=== PATIENT | female | born 1945 | race Caucasian/White ===

== ENCOUNTER 2017-02-02 11:14 | Observation (INO) | payer BC, OTHER ==
[2017-01-27 14:00] LABS: BASOPHILS 0.3 %; BASOPHILS ABSOLUTE 0.02 10/3/uL (0.0-0.16); EOSINOPHILS 0.9 %; EOSINOPHILS ABSOLUTE 0.06 10/3/uL (0.0-0.53); HEMATOCRIT 37.6 % (36.0-48.0); HEMOGLOBIN 12.9 g/dL (12.0-16.0); IMMATURE GRANULOCYTES 0.1 %; IMMATURE GRANULOCYTES ABSOLUTE 0.01 10/3/uL (0.0-0.11); LYMPHOCYTES 33.2 %; LYMPHOCYTES ABSOLUTE 2.22 10/3/uL (0.67-4.30); MEAN CORPUS HGB CONC 34.3 g/dL (32.0-36.0); MEAN CORPUSCULAR HEMOGLOB 30.4 pg (26.0-34.0); MEAN CORPUSCULAR VOLUME 88.7 fL (80-100); MEAN PLATELET VOLUME 8.9 fL (9.2-13.0); MONOCYTES 9.1 %; MONOCYTES ABSOLUTE 0.61 10/3/uL (0.21-1.20); NEUTROPHILS 56.4 %; NEUTROPHILS ABSOLUTE 3.76 10/3/uL (2.02-8.40); PLATELET COUNT 293 10/3/uL (150-400); RED CELL COUNT 4.24 10/6/uL (4.0-5.6); WHITE BLOOD CELLS 6.7 10/3/uL (4.5-10.5)
[2017-01-27 14:02] LABS: MANUAL DIFF NO %
[2017-01-27 14:14] LABS: ASCORBIC ACID (UR NOT ORDER) NEG (NEG); BILIRUBIN, URINE NEGATIVE (NEG); BUN (BLOOD UREA NITROGEN) 15 MG/DL (6-23); CALCIUM, SERUM 9.4 MG/DL (8.5-10.4); CHLORIDE, SERUM 97 MMOL/L (96-112); CO2 (CARBON DIOXIDE) 33 MMOL/L (24-34); CREATININE 0.69 MG/DL (0.55-1.02); GFR AFRICAN AMERICAN 100 ML/MIN (>=60); GFR NON AFRICAN AMERICAN 86 ML/MIN (>=60); GLUCOSE, SERUM 89 MG/DL (60-99); KETONE, URINE NEGATIVE (NEG); LEUKOCYTE ESTERASE(NOT OR SMALL (NEG); POTASSIUM, SERUM 3.8 MMOL/L (3.5-5.3); SODIUM, SERUM 137 MMOL/L (135-148); WBC (NOT ORDERED) (RFLEX) 2 (0-5)
--- NOTE | ~2017-02-02 | OP ---
Record Of Operation [facility] [address] [place]. 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 PROCEDURES: 1. Robot-assisted laparoscopic hysterectomy with bilateral salpingo-oophorectomy. CPT code 24076. 2. Intraoperative sentinel lymph node identification. CPT code 89891. 3. Bilateral pelvic lymph node dissection. CPT code 55784. ANESTHESIA: General. ESTIMATED BLOOD LOSS: 50 mL. CRYSTALLOID: 1500 mL. URINE OUTPUT: 400 mL. DRAINS: Gruber. FINDINGS: Left external iliac lymph node and a right external iliac sentinel lymph nodes were identified via the firefly scope and removed as separate specimens. The uterus itself was grossly normal in appearance as well as her bilateral adnexa. There were no grossly involved lymph nodes in the pelvis. Once the uterus was removed, it was bivalved, and it looked like there was deep invasion of the neoplasm near-complete invasion of the posterior uterine wall, and this prompted a complete pelvic lymphadenectomy. PATHOLOGY: Uterus, uterine cervix, bilateral fallopian tubes and ovaries, bilateral sentinel lymph nodes, bilateral pelvic lymph nodes, and pelvic washings. COMPLICATIONS: None. POSTOPERATIVE PLAN: Extubated to PACU. PROCEDURE IN DETAIL: After informed consent was signed, the patient was taken to the operating room, and placed in dorsal supine position, where adequate general anesthesia was administered. She was then placed in dorsal lithotomy position in Casey stirrups, and prepped and draped in usual fashion, and a Gruber catheter was placed. The uterus was sounded, cervix was dilated, and the NIMCO uterine manipulator was assembled and deployed. The left upper quadrant incision was made with a scalpel and carried down to the fascia, which was incised, muscle was , posterior sheath was entered sharply, trocar was placed, and the abdomen was insufflated with CO2 gas. Additional robot trocars were placed in the bilateral upper quadrants, right lower flank, and supraumbilical region. The patient Record Of [facility] [place]. [address] NAME: RAÚL SEAMAN : 41 STATUS : ADM Shanon PAT#: [id number] AGE: 71 ADM/REG DATE : 02/02/17 MR#: [id number] REPORT SERV DATE: 02/03/17 DICTATED BY: GIORGIO BECKER DATE: 02/03/17 REPORT STATUS : Draft TRANSCRIBED BY: ANDREA DATE: 02/03/17 was then placed in steep Trendelenburg, and the robot was docked in the usual fashion. Prior to placement of the uterine manipulator, the cervix was injected with ICG at 3 and 9 o'clock. Bilateral round ligaments were taken with bipolar cautery, and transected with monopolar scissors, and the pelvic peritoneum was taken down lateral and parallel to the infundibulopelvic ligaments. The pararectal and paravesical spaces were developed. Using the firefly scope, a left external iliac sentinel lymph node and a right external iliac sentinel lymph nodes were identified, and removed as separate specimens with monopolar scissors, and taken out through the insurance administrative assistant port. Next, the ureters identified and reflected medially. Clips were placed in the origins of the uterine arteries bilaterally. The infundibulopelvic ligaments were then isolated, taken with bipolar cautery, transected with monopolar scissors, and the broad ligaments were taken down to the level of the cervix, where the posterior colpotomy was made. The vesicouterine peritoneum was incised, and the bladder was taken down well beneath the level of the anterior FE ring, and the anterior colpotomy was made. The uterine vessels were then taken at the cervix with bipolar cautery, and transected with monopolar scissors, and the parametria reflected off the cervical stroma. The anterior and posterior colpotomies were then connected using monopolar scissors, and the uterus, uterine cervix, and bilateral fallopian tubes were taken out through the vagina. The uterus was opened at the bedside, and there was a fair amount of tumor within the endometrial canal. Cross sections of the myometrium were performed with the scalpel and appeared to be a near-complete invasion of the entire myometrium on the posterior uterine wall. Therefore, a complete pelvic lymphadenectomy was performed. Specifically, all lymphatic tissue from the midportion of the common iliac artery superiorly down to the deep circumflex iliac vein inferiorly, from the psoas muscle laterally, the superior vesical artery medially, and the obturator nerve posteriorly were removed using monopolar scissors and blunt dissection where appropriate. Lymph nodes were placed in the respective EndoCatch bags, and brought out through the insurance administrative assistant port. Excellent hemostasis was noted. The vagina was then closed with 0 180 V-Loc suture with a running stitch, and the pelvis was irrigated and again found to be hemostatic. All instruments were removed from the abdomen. The robot was undocked. CO2 gas was evacuated. The Gruber catheter was removed, and the cystoscope was placed through the urethra, and the bladder distended with appropriate media. Bilateral brisk ureteral jets were noted suggesting bilateral ureteral patency, and the cystoscope was removed. The CO2 gas was then reintroduced into the abdomen, and using the laparoscope, the pelvis was examined and found to be hemostatic. The laparoscope and all trocars were then removed from the abdomen, and CO2 gas was evacuated. The fascia from the left upper quadrant incision was closed with 0 Vicryl suture, and the skin from all trocar sites was closed with 4-0 Monocryl and Dermabond. The patient tolerated the procedure well, was awakened, extubated, and sent to the PACU in stable condition. Appropriate antibiotics were given prior to start of the procedure. TB/ANDREA Giorgio Becker MD / [id number] Record Of [address] [address] NAME: RAÚL SEAMAN : 41 STATUS : ADM Shanon PAT#: [id number] AGE: 71 ADM/REG DATE : 02/02/17 MR#: [id number] REPORT SERV DATE: 02/03/17 DICTATED BY: GIORGIO BECKER DATE: 02/03/17 REPORT STATUS : Draft TRANSCRIBED BY: MODL DATE: 02/03/17 CC: MD CLARA Light
[~2017-02-02 11:14] MED LIST: ADVIL PO; ATEN100 PO; COZAAR100 MG PO; HYGROTON 25 MG25 MG PO
[2017-02-03 07:24] LABS: BASOPHILS 0.1 %; BASOPHILS ABSOLUTE 0.01 10/3/uL (0.0-0.16); EOSINOPHILS 0 %; HEMATOCRIT 32.8 % (36.0-48.0); HEMOGLOBIN 11.3 g/dL (12.0-16.0); IMMATURE GRANULOCYTES 0.2 %; IMMATURE GRANULOCYTES ABSOLUTE 0.02 10/3/uL (0.0-0.11); LYMPHOCYTES 15.1 %; LYMPHOCYTES ABSOLUTE 1.63 10/3/uL (0.67-4.30); MANUAL DIFF NO %; MEAN CORPUS HGB CONC 34.5 g/dL (32.0-36.0); MEAN CORPUSCULAR HEMOGLOB 30.5 pg (26.0-34.0); MEAN CORPUSCULAR VOLUME 88.6 fL (80-100); MEAN PLATELET VOLUME 9.1 fL (9.2-13.0); MONOCYTES 7.6 %; MONOCYTES ABSOLUTE 0.82 10/3/uL (0.21-1.20); NEUTROPHILS ABSOLUTE 8.35 10/3/uL (2.02-8.40); PLATELET COUNT 254 10/3/uL (150-400); RBC DISTRIBUTION WIDTH 13.3 % (12.0-16.0); WHITE BLOOD CELLS 10.8 10/3/uL (4.5-10.5)
[2017-02-03 07:41] LABS: BUN (BLOOD UREA NITROGEN) 12 MG/DL (6-23); CALCIUM, SERUM 8.5 MG/DL (8.5-10.4); CHLORIDE, SERUM 102 MMOL/L (96-112); POTASSIUM, SERUM 3.4 MMOL/L (3.5-5.3); SODIUM, SERUM 136 MMOL/L (135-148)
[2017-02-03 07:42] LABS: CO2 (CARBON DIOXIDE) 28 MMOL/L (24-34); CREATININE 1.29 MG/DL (0.55-1.02); GFR AFRICAN AMERICAN 48 ML/MIN (>=60); GFR NON AFRICAN AMERICAN 41 ML/MIN (>=60); GLUCOSE, SERUM 115 MG/DL (60-99)
[2017-02-03] MEDS ORDERED: BIST PO (14:46)
[2017-02-03] MEDS ORDERED: PCET PO (14:46)
[2017-02-03] MEDS ORDERED: COMP10B PO (14:48)
== END 2017-02-03 15:58 | disposition home or self-care (01) ==
LOC: SDC 11:14 → 4EA 17:15
PROVIDERS: Obstetrics & Gynecology Gynecology
PROC: 0UT24ZZ Resection of Bilateral Ovaries, Percutaneous Endoscopic Approach (ICD-10-PCS; 2017-02-02)
PROC: 0UT74ZZ Resection of Bilateral Fallopian Tubes, Percutaneous Endoscopic Approach (ICD-10-PCS; 2017-02-02)
PROC: 07BC4ZZ Excision of Pelvis Lymphatic, Percutaneous Endoscopic Approach (ICD-10-PCS; 2017-02-02)
PROC: 0UT94ZZ Resection of Uterus, Percutaneous Endoscopic Approach (ICD-10-PCS; principal; 2017-02-02 13:00)
PROC: 0UTC4ZZ Resection of Cervix, Percutaneous Endoscopic Approach (ICD-10-PCS; 2017-02-02 13:00)
DX: C54.1 Malignant neoplasm of endometrium (principal); I10 Essential (primary) hypertension; E11.9 Type 2 diabetes mellitus without complications; M19.90 Unspecified osteoarthritis, unspecified site; M79.7 Fibromyalgia; N28.1 Cyst of kidney, acquired; K21.9 Gastro-esophageal reflux disease without esophagitis; F32.9 Major depressive disorder, single episode, unspecified; F41.9 Anxiety disorder, unspecified; Z79.899 Other long term (current) drug therapy; Z87.891 Personal history of nicotine dependence; Z98.890 Other specified postprocedural states
CPT/HCPCS: 36415; 71020; 80048; 81001; 82962; 85025; 85610; 86850; 86900; 86901; 87086; 88112; 88305; 88307; 88309; 88341; 88342; 93005; 96374; 96376; A9270-GY; G0378; J0694; J2250; J2405; J2550; J2795; J3010